=== PATIENT | male | born 1955 | race Caucasian/White ===

== ENCOUNTER → 2019-02-05 | Outpatient (CLI) | payer MEDICARE ==
[2019-02-05 17:33] LABS: African American GFR (CKD) 81.2 (60.0-200.0); Anion Gap 4.8 mmol/L (4.00-12.00); BUN/Creat Ratio 13.64 Ratio (12.00-20.00); Calcium 9.8 mg/dL (8.7-10.3); Carbon Dioxide 29.2 mmol/L (21.6-31.8); Potassium 4.9 mmol/L (3.5-5.5)
== END | disposition home or self-care (01) ==
LOC: LABWHC1 09:41
PROVIDERS: ATTEND Nurse Practitioner
DX: I10 Essential (primary) hypertension (principal)
CPT/HCPCS: 36415; 80048; 83735

== ENCOUNTER → 2019-06-25 | Outpatient (CLI) | payer MEDICARE | END | disposition home or self-care (01) | LOC: LABWHC1 07:33 | PROVIDERS: ATTEND Physician Assistant Medical | DX: T78.3XXA Angioneurotic edema, initial encounter (principal) | CPT/HCPCS: 36415; 86160; 86161 ==

== ENCOUNTER → 2019-10-05 | Outpatient (CLI) | payer MEDICARE ==
[2019-10-05 08:08] LABS: African American GFR (CKD) >90 (>60 ml/min/1.73 sqM); Anion Gap 7 mmol/L; Blood Urea Nitrogen 13 mg/dL (9-20); Carbon Dioxide 30 mmol/L (22-30); Chloride 103 mmol/L (98-107); Non-African American GFR(CKD) 89 (>60 ml/min/1.73 sqM); Potassium 5.3 mmol/L (3.5-5.1); Sodium 140 mmol/L (137-145)
[2019-10-05 08:11] LABS: HCT 50.2 % (39.0-53.0); HGB 16.7 gm/dL (13.0-17.5); MCH 31.3 pg (25.0-35.0); MCHC 33.3 g/dL (31.0-37.0); MCV 93.9 fL (80.0-100.0); Mean Platelet Volume 7.2; Platelet Count 206 k/uL (150-450); RBC 5.34 m/uL (4.30-5.90); RDW 12.4 % (11.5-15.5); WBC 5.8 k/uL (3.8-10.6)
== END | disposition home or self-care (01) ==
LOC: LABPAT 07:04
PROVIDERS: ATTEND Internal Medicine Interventional Cardiology
DX: Z01.818 Encounter for other preprocedural examination (principal); I25.2 Old myocardial infarction
CPT/HCPCS: 36415; 80051; 82565; 84520; 85027

== ENCOUNTER 2019-10-15 06:25 | Day surgery (SDC) | payer MEDICARE, OTHER ==
[2019-10-12 09:46] VITALS: BMI 31.3
[~2019-10-15 06:25] MED LIST: ALPRAZolam 0.25 MG TAB PO PRN; ALPRAZolam 0.5 MG TAB PO PRN; ASPIRIN 325 MG TAB PO STA; ATORVASTATIN 80 MG TAB PO STA; NITROGLYCERIN SL TABS 0.4 MG TAB SUBLINGUAL PRN; SODIUM CHLORIDE 0.9% 1,000 ML in EMPTY BAG 1 BAG IV ONE
[2019-10-15 06:53] VITALS: RESP 16; TEMP 98.1
[2019-10-15] MEDS ORDERED: LIDOCAINE 1% INJ 10MG/ML (20 ML MDV) ONE (07:18)
[2019-10-15] MEDS ORDERED: VERAPAMIL 2.5 MG/ML 2 ML AMP ONE (07:18)
[2019-10-15] MEDS ORDERED: NITROGLYCERIN SL TABS 0.4 MG TAB SUBLINGUAL ONE ×2 (07:29)
[2019-10-15] MEDS ORDERED: MIDAZOLAM 2 MG/2 ML VIAL IV ONE (07:30)
[2019-10-15] MEDS ORDERED: fentaNYL (PF) 50 MCG/ML 2 ML AMP ONE (07:31)
[2019-10-15] MEDS ORDERED: LIDOCAINE 1% INJ 10MG/ML (20 ML MDV) SQ ONE (07:32)
[2019-10-15] MEDS ORDERED: fentaNYL (PF) 50 MCG/ML 2 ML AMP IV ONE (07:33)
[2019-10-15] MEDS: VERAPAMIL SYRINGE (5 MG/10 ML) INTRAARTER ONE ×2 (07:34→07:54)
[2019-10-15] MEDS ORDERED: HEPARIN SODIUM 1,000 UN/ML (10ML VL) ONE (07:40)
[2019-10-15] MEDS ORDERED: IOPAMIDOL-370 100ML BTL INJ ONE (07:53)
[2019-10-15] MEDS ORDERED: amLODIPine 5 MG TAB PO STA (08:13)
[2019-10-15] MEDS ORDERED: SODIUM CHLORIDE 0.9% 1,000 ML IV SCH (08:15)
[2019-10-15 09:23] VITALS: BP 152/77; PULSE 51
[2019-10-15 10:37] LABS: African American GFR (CKD) >90 (>60 ml/min/1.73 sqM); Anion Gap 4 mmol/L; Blood Urea Nitrogen 13 mg/dL (9-20); Calcium 8.6 mg/dL (8.4-10.2); Carbon Dioxide 28 mmol/L (22-30); Chloride 106 mmol/L (98-107); Glucose 121 mg/dL (74-99); Non-African American GFR(CKD) >90 (>60 ml/min/1.73 sqM); Potassium 4.3 mmol/L (3.5-5.1); Sodium 138 mmol/L (137-145)
--- NOTE | 2019-10-15 12:11 | CC ---
CARDIAC CATHETERIZATION REPORT DATE OF SERVICE: OCTOBER 15, 2019 PROCEDURE: Left coronary angiography. PERFORMED BY: Dr. Bella Nicolas. Moderate conscious sedation time was 25 minutes. Patient was administered Versed and fentanyl. Oxygen saturation, hemodynamics and EKG were monitored closely. CLINICAL INFORMATION: Mr. Montez Abraham had an acute inferior NY in 2004 and went on to have stenting of a very tortuous RCA. A month or so later he was brought in for elective PCI of a proximal and mid LAD before and after the diagonal branch. Since then, he has done well, but lately he has had some exertional shortness of breath and abnormality in the inferior wall a combination of fixed and reversible defect and he was advised cardiac cath after due discussion regarding risks, benefits, and options. PROCEDURE NOTE: Under local anesthesia and strict aseptic precautions, a 6-Australian introducer was placed in the right radial artery. Using a JL3.5 and JR4.0 catheters I performed coronary angiography. There was extreme tortuosity and therefore I did not check LV pressures. There was a lot of tortuosity in the aortic arch as well as in the brachiocephalic area. CORONARY ANGIOGRAPHY FINDINGS: RIGHT CORONARY ARTERY: Technically a dominant vessel that was treated in December 2004 when he presented with acute [place]. This is a dominant vessel, heavily calcified. The proximal portion right at the ostium there is about a 40% to 45% narrowing and a conus branch comes off and acute marginal branch comes off. In multiple views, I do not believe this is a critical lesion. There is about a 40% narrowing and then in the stented area, the vessel is widely patent with about a 30% to 35% narrowing. Distally it gives it bifurcates into PDA and PLV. PLV appears to be larger. There is no significant disease involving the PLV and the PDA also has minor irregularities, no significant disease. The proximal RCA therefore is a 40% to 45% eccentric plaque and the stented segment is patent with no more than 35% narrowing. Distal branches are free of significant disease. LEFT MAIN CORONARY ARTERY: Left main coronary artery somewhat tortuous vessel has about a 15% narrowing distally and bifurcates into LAD and circumflex. LEFT ANTERIOR DESCENDING CORONARY: This vessel was stented in the proximal and midportion before and after the diagonal branch. The stented segment is patent. The diagonal branch is patent at its origin. There is about a 60% disease in the diagonal branch, but the LAD itself has about a 40% to 45% narrowing with brisk MACIEL-3 flow and runs all the way to the apex supplying a sizable amount of myocardium. The diagonal branch has about 60% narrowing it is a fair caliber diagonal. The LAD is a very large vessel. It curves over the apex to supply the inferoapical portion of left ventricle. Left posterior circumflex coronary artery is a nondominant vessel, extremely tortuous has to 90 degree bends, has about a 30% to 35% narrowing supplies a fair amount of myocardium. It gives off a large posterolateral branch has minor irregularities. Left ventriculogram was not performed. FINAL IMPRESSION: This patient has a right dominant system with a 45% ostial proximal RCA stenosis stented segment is patent, 35% narrowing. Left main has 10 to 15% percent narrowing and the LAD in the stented area has about a 35% to 40% narrowing with brisk flow. Circumflex is 35% stenosis, tortuous. No significant disease. LV pressures were not obtained. RECOMMENDATIONS: Findings were reviewed with the patient and . I am recommending that we will pursue medical therapy with risk factor modification. The patient has heavily calcified vessels and down the road if he requires revascularization surgery may be a better option. For now we will pursue medical therapy with risk factor modification. Patient will be discharged later on today if he remains stable. MAXIMILIANO / PORTILLON: [id number] /
--- NOTE | 2019-10-16 10:31 | ECHOF ---
Referral Reason:LV function MEASUREMENTS -------- HEIGHT: 170.2 cm WEIGHT: 95.3 kg BP: 152/77 RVIDd: 3.6 cm (< 3.3) IVSd: 1.6 cm (0.6 - 1.1) LVIDd: 4.3 cm (3.9 - 5.3) LVPWd: 1.4 cm (0.6 - 1.1) IVSs: 2.0 cm LVIDs: 2.8 cm LVPWs: 1.9 cm LAESV Index (A-L): 39.77 ml/m Ao Diam: 3.5 cm (2.0 - 3.7) AV Cusp: 1.8 cm (1.5 - 2.6) MV EXCURSION: 20.180 mm (> 18.000) MV EF SLOPE: 60 mm/s (70 - 150) EPSS: 0.7 cm MV E Ran: 0.68 m/s MV DecT: 165 ms MV A Ran: 0.92 m/s MV E/A Ratio: 0.73 AR PHT: 422 ms RAP: 5.00 mmHg RVSP: 34.43 mmHg FINDINGS -------- This was a technically adequate study. The left ventricular size is normal. There is moderate concentric left ventricular hypertrophy. O verall left ventricular systolic function is low-normal with, an EF between 50 - 55 %. The diastoli c filling pattern is normal for the age of the patient 9.48. The right ventricle is mildly enlarged. LA is moderately dilated 34-39 ml/m2 The right atrium is mildly enlarged. Interatrial and interventricular septum intact. There is mild aortic valve sclerosis. There is [id number] aortic regurgitation. There is no evidence of aortic stenosis. Mild mitral regurgitation is present. Mild tricuspid regurgitation present. There is borderline pulmonary artery hypertension. The righ t ventricular systolic pressure, as measured by Doppler, is 34.43mmHg. There is no pulmonic regurgitation present. The aortic root size is normal. IVC Not well visulized. There is no pericardial effusion. CONCLUSIONS -------- 1. This was a technically adequate study. 2. The left ventricular size is normal. 3. There is moderate concentric left ventricular hypertrophy. 4. Overall left ventricular systolic function is low-normal with, an EF between 50 - 55 %. 5. The diastolic filling pattern is normal for the age of the patient 9.48 6. The right ventricle is mildly enlarged. 7. LA is moderately dilated 34-39 ml/m2 8. The right atrium is mildly enlarged. 9. Interatrial and interventricular septum intact. 10. There is mild aortic valve sclerosis. 11. There is [id number] aortic regurgitation. 12. There is no evidence of aortic stenosis. 13. Mild mitral regurgitation is present. 14. Mild tricuspid regurgitation present. 15. There is borderline pulmonary artery hypertension. 16. The right ventricular systolic pressure, as measured by Doppler, is 34.43mmHg. 17. There is no pulmonic regurgitation present. 18. The aortic root size is normal. 19. IVC Not well visulized. 20. There is no pericardial effusion. DIRECT[employer]: Jocelynn Reinoso RDCS
== END 2019-10-15 14:00 | disposition home or self-care (01) ==
LOC: CATHCVL 06:25
PROVIDERS: ATTEND Internal Medicine Interventional Cardiology
DX: I25.10 Atherosclerotic heart disease of native coronary artery without angina pectoris (principal); I08.3 Combined rheumatic disorders of mitral, aortic and tricuspid valves; I27.20 Pulmonary hypertension, unspecified; I10 Essential (primary) hypertension; E78.5 Hyperlipidemia, unspecified; E78.00 Pure hypercholesterolemia, unspecified; I25.2 Old myocardial infarction; Z79.82 Long term (current) use of aspirin; Z79.899 Other long term (current) drug therapy; Z88.0 Allergy status to penicillin; Z88.5 Allergy status to narcotic agent; G47.33 Obstructive sleep apnea (adult) (pediatric); Z87.891 Personal history of nicotine dependence; Z98.890 Other specified postprocedural states
CPT/HCPCS: 93306; 93454; 80048; C1769 ×2; C1894; J2250; J2001; J3010; J1644; Q9967